=== PATIENT | male | born 1965 | race Caucasian/White ===

== ENCOUNTER 2020-02-24 16:41 | Inpatient (IN) | payer BC ==
[~2020-02-24] VITALS: Ht 189.2 cm; Wt 140.9 kg
--- NOTE | 2020-02-24 17:35 | NUR ---
THIS IS A 54 YO M BIB EMS FROM [facility] W/ C/O N/V AND RT SIDED ABD PAIN. EMS REPORTS PRESENCE OF GALSTONES. EMS REPORTS PT RECEIVED 4MG ZOFRAN AND 2L NS LEAD JAVASCRIPT DEVELOPER. PT REPORTS NAUSEA STARTED FRIDAY. PT HAS BEEN SELF ISOLATING AT HOME, HAS C/O SUBJECTIVE FEVERS AND NON PRODUCTIVE COUGH. WAS SWABBED FOR COVID AT [facility]. PT VSS, RESTING ON [facility] W/ CALL LIGHT IN REACH. AWAITING ED EVAL.
--- NOTE | 2020-02-24 17:59 | NUR ---
NO ORDERS FOR PT AT THIS TIME. PT DENIES EPISODE OF VOMITING SINCE ARRIVAL, VSS.
[2020-02-24] MEDS ORDERED: ONDANSETRON 2MG/ML, 2ML IVPush ONE (18:30)
[2020-02-24] MEDS ORDERED: MORPHINE SULFATE 4 MG/ML, 1ML IVPush PRN (18:30)
[2020-02-24] MEDS ORDERED: SODIUM CHLORIDE FLUSH 10ML SYR IVF ONE (18:30)
[2020-02-24] MEDS ORDERED: SODIUM CHLORIDE 0.9% 1,000ML IVBOLUS ONE (18:30)
[2020-02-24] MEDS ORDERED: ONDANSETRON 2MG/ML, 2ML ONE (18:31)
[2020-02-24] MEDS ORDERED: MORPHINE SULFATE 4 MG/ML, 1ML ONE (18:32)
--- NOTE | 2020-02-24 18:40 | NUR ---
PT MEDICATED PER EMAR. PLACED ON 2L O2 NC.
[2020-02-24 18:43] LABS: BASOPHILS # (AUTO) 0.02 x10^3/uL (0-0.1); BASOPHILS % (AUTO) 0 % (0-1); EOSINOPHILS # (AUTO) 0.01 x10^3/uL (0-0.4); EOSINOPHILS % (AUTO) 0 % (1-7); LYMPHOCYTES # (AUTO) 0.68 x10^3/uL (1-3.4); LYMPHOCYTES % (AUTO) 6 % (22-44); MD NO; MEAN CORPUSCULAR HEMOGLOBIN 28.7 pg (27.5-34.5); MEAN CORPUSCULAR HGB CONC 32.6 g/dL (33.2-36.2); MEAN PLATELET VOLUME 9.3 fL (7.4-10.4); MONOCYTES # (AUTO) 0.77 x10^3/uL (0.2-0.8); MONOCYTES % (AUTO) 6 % (2-9); NEUTROPHILS # (AUTO) 10.69 x10^3/uL (1.8-6.8); NEUTROPHILS % (AUTO) 88 % (42-75); PLATELET COUNT 172 x10^3/uL (130-400); RED BLOOD COUNT 6.05 x10^6/uL (4.38-5.82); RED CELL DISTRIBUTION WIDTH 14.1 % (9.4-14.8)
--- NOTE | 2020-02-24 18:45 | NUR ---
PT REPORTS NO HOME MEDS. IN ROOM TO UPDATE PT ON POC FOR ADMIT.
[2020-02-24 18:49] LABS: ALBUMIN 3.2 g/dL (3.4-5.0); ANION GAP 10 mmol/L (5-15); CALCIUM 8.5 mg/dL (8.5-10.1); CHLORIDE 107 mmol/L (98-107); CREATININE 1.62 mg/dL (0.7-1.3)
[2020-02-24 18:51] LABS: ALKALINE PHOSPHATASE 101 U/L (45-117); BILIRUBIN,TOTAL 5.1 mg/dL (0.2-1.0); TOTAL PROTEIN 6.5 g/dL (6.4-8.2)
--- NOTE | 2020-02-24 18:57 | NUR ---
pt to mri.
[2020-02-24 19:30] LABS: ALANINE AMINOTRANSFERASE 1347 U/L (12-78)
[2020-02-24] MEDS ORDERED: SODIUM CHLORIDE 0.9% 1,000 ML IV ONE ×2 (20:35→20:38)
[2020-02-24] MEDS ORDERED: CEFOTETAN PMX 1GM/50ML 50 ML ONE (20:52)
[2020-02-24] MEDS ORDERED: SODIUM CHLORIDE FLUSH 10ML SYR IVF PRN (21:00)
[2020-02-24] MEDS ORDERED: CEFOTETAN PMX 1GM/50ML 50 ML IV ONE (21:00)
--- NOTE | 2020-02-24 22:00 | NUR ---
REPORT CALLED TO SPEEDY MARINA ON MED/SURG. PT AGREEABLE TO PLAN OF CARE. DENIES CURRENT NEEDS. A&O X 4
[2020-02-24] MEDS ORDERED: ONDANSETRON 2MG/ML, 2ML IVPush PRN (22:30)
[2020-02-24] MEDS ORDERED: hydrALAzine 20 MG/ML, 1ML IVPush PRN (22:30)
[2020-02-24] MEDS ORDERED: morphine SULFATE 10 MG/ML, 1ML IVPush PRN (22:30)
[2020-02-24] MEDS: LACTATED RINGERS 1,000 ML IV SCH (22:54)
[2020-02-24 22:57] VITALS: BP 118/86
[2020-02-24] MEDS: HEPARIN 5,000 UNITS/ML, 1ML SQ SCH (23:23)
[2020-02-25 00:57] VITALS: BP 111/67
[2020-02-25 04:22] VITALS: BP 117/87
[2020-02-25] MEDS: LACTATED RINGERS 1,000 ML IV SCH (06:30)
[2020-02-25] MEDS: PIPERACILLIN/TAZO/PMX 3.375GM 50 ML IV SCH ×4 (06:36→23:48)
[2020-02-25] MEDS: HEPARIN 5,000 UNITS/ML, 1ML SQ SCH ×3 (06:37→23:48)
[2020-02-25 07:13] LABS: BASOPHILS # (AUTO) 0.05 x10^3/uL (0-0.1); BASOPHILS % (AUTO) 1 % (0-1); EOSINOPHILS # (AUTO) 0.04 x10^3/uL (0-0.4); EOSINOPHILS % (AUTO) 0 % (1-7); LYMPHOCYTES # (AUTO) 0.67 x10^3/uL (1-3.4); LYMPHOCYTES % (AUTO) 6 % (22-44); MD NO; MEAN CORPUSCULAR HEMOGLOBIN 28.8 pg (27.5-34.5); MEAN CORPUSCULAR HGB CONC 32.8 g/dL (33.2-36.2); MEAN CORPUSCULAR VOLUME 87.8 fL (81-97); MEAN PLATELET VOLUME 8.6 fL (7.4-10.4); MONOCYTES # (AUTO) 0.96 x10^3/uL (0.2-0.8); MONOCYTES % (AUTO) 9 % (2-9); NEUTROPHILS # (AUTO) 8.82 x10^3/uL (1.8-6.8); NEUTROPHILS % (AUTO) 84 % (42-75); PLATELET COUNT 158 x10^3/uL (130-400); RED BLOOD COUNT 5.89 x10^6/uL (4.38-5.82)
[2020-02-25 07:25] LABS: ANION GAP 8 mmol/L (5-15); CHLORIDE 107 mmol/L (98-107)
[2020-02-25] MEDS ORDERED: PANTOPRAZOLE 40 MG IV IVPush SCH (07:30)
[2020-02-25 07:33] LABS: ALKALINE PHOSPHATASE 94 U/L (45-117); TOTAL PROTEIN 6.2 g/dL (6.4-8.2)
[2020-02-25 07:54] LABS: FREE T4 (FREE THYROXINE) 0.96 ng/dL (0.76-1.46)
[2020-02-25 07:55] LABS: ALANINE AMINOTRANSFERASE 1074 U/L (12-78)
[2020-02-25 09:09] VITALS: BP 115/80
[2020-02-25 12:39] LABS: CHLORIDE,URINE RANDOM 12 mmol/L; POTASSIUM,URINE RANDOM 24 mmol/L; SODIUM,URINE RANDOM 8 mmol/L
[2020-02-25] MEDS: D5%-0.45NACL+KCL 20MEQ 1,000 ML IV SCH (14:20)
[2020-02-25 14:21] VITALS: BP 124/88
[2020-02-25 19:47] VITALS: BP 114/77
[2020-02-26 03:08] VITALS: BP 114/78
[2020-02-26] MEDS: D5%-0.45NACL+KCL 20MEQ 1,000 ML IV SCH ×3 (03:21→23:22)
[2020-02-26 05:13] LABS: ALBUMIN 3.1 g/dL (3.4-5.0); ANION GAP 7 mmol/L (5-15); CALCIUM 8.1 mg/dL (8.5-10.1); CHLORIDE 104 mmol/L (98-107); CREATININE 1.61 mg/dL (0.7-1.3)
[2020-02-26 05:14] LABS: BASOPHILS # (AUTO) 0.01 x10^3/uL (0-0.1); BASOPHILS % (AUTO) 0 % (0-1); EOSINOPHILS # (AUTO) 0.08 x10^3/uL (0-0.4); EOSINOPHILS % (AUTO) 1 % (1-7); LYMPHOCYTES # (AUTO) 0.87 x10^3/uL (1-3.4); LYMPHOCYTES % (AUTO) 8 % (22-44); MD NO; MEAN CORPUSCULAR HEMOGLOBIN 28.6 pg (27.5-34.5); MEAN CORPUSCULAR VOLUME 89.6 fL (81-97); MEAN PLATELET VOLUME 8.6 fL (7.4-10.4); MONOCYTES # (AUTO) 1.09 x10^3/uL (0.2-0.8); MONOCYTES % (AUTO) 10 % (2-9); NEUTROPHILS # (AUTO) 8.72 x10^3/uL (1.8-6.8); NEUTROPHILS % (AUTO) 81 % (42-75); PLATELET COUNT 139 x10^3/uL (130-400); RED BLOOD COUNT 5.88 x10^6/uL (4.38-5.82); RED CELL DISTRIBUTION WIDTH 14.3 % (9.4-14.8)
[2020-02-26] MEDS: PIPERACILLIN/TAZO/PMX 3.375GM 50 ML IV SCH ×3 (06:53→21:10)
[2020-02-26] MEDS: HEPARIN 5,000 UNITS/ML, 1ML SQ SCH ×3 (06:53→16:12)
[2020-02-26 09:52] VITALS: BP 116/80
[2020-02-26 15:15] VITALS: BP 115/77
[2020-02-26 19:20] VITALS: BP 116/79
[2020-02-26] MEDS ORDERED: POTASSIUM PHOSPHATE 44 MEQ in SODIUM CHLORIDE 0.9% 500 ML IV ONE (20:00)
[2020-02-26] MEDS ORDERED: MAGNESIUM SULFATE PMX 2GM/50ML 50 ML IV ONE (20:30)
[2020-02-27 00:17] VITALS: BP 123/84
[2020-02-27] MEDS: PIPERACILLIN/TAZO/PMX 3.375GM 50 ML IV SCH ×4 (03:45→22:34)
[2020-02-27 05:10] LABS: BASOPHILS # (AUTO) 0.03 x10^3/uL (0-0.1); BASOPHILS % (AUTO) 0 % (0-1); EOSINOPHILS # (AUTO) 0.19 x10^3/uL (0-0.4); EOSINOPHILS % (AUTO) 2 % (1-7); LYMPHOCYTES # (AUTO) 0.96 x10^3/uL (1-3.4); LYMPHOCYTES % (AUTO) 9 % (22-44); MD NO; MEAN CORPUSCULAR HEMOGLOBIN 28.5 pg (27.5-34.5); MEAN CORPUSCULAR HGB CONC 32.4 g/dL (33.2-36.2); MEAN CORPUSCULAR VOLUME 87.9 fL (81-97); MEAN PLATELET VOLUME 8.4 fL (7.4-10.4); MONOCYTES # (AUTO) 0.87 x10^3/uL (0.2-0.8); MONOCYTES % (AUTO) 8 % (2-9); NEUTROPHILS % (AUTO) 81 % (42-75); PLATELET COUNT 156 x10^3/uL (130-400); RED BLOOD COUNT 5.83 x10^6/uL (4.38-5.82); RED CELL DISTRIBUTION WIDTH 14.2 % (9.4-14.8)
[2020-02-27 05:21] LABS: BILIRUBIN, DIRECT 2.3 mg/dL (0.1-0.2)
[2020-02-27 05:23] LABS: BILIRUBIN,INDIRECT 1.4 mg/dL (0.0-2.0); BILIRUBIN,TOTAL 3.7 mg/dL (0.2-1.0); TOTAL PROTEIN 6.5 g/dL (6.4-8.2)
[2020-02-27 07:22] VITALS: BP 119/87
[2020-02-27] MEDS: D5%-0.45NACL+KCL 20MEQ 1,000 ML IV SCH (10:14)
[2020-02-27] MEDS: SODIUM CHLORIDE 0.9% 1,000ML IVBOLUS ONE ×2 (10:30→10:37)
[2020-02-27 15:18] VITALS: BP 124/84
[2020-02-27] MEDS: HEPARIN 5,000 UNITS/ML, 1ML SQ SCH (15:21)
[2020-02-27] MEDS ORDERED: HEPARIN 5,000 UNITS/ML, 1ML IV ONE (18:00)
[2020-02-27 18:20] LABS: D-DIMER 11.41 ug/mlFEU (0.00-0.52)
[2020-02-27] MEDS: HEPARIN 25,000 UNITS/250ML PMX 250 ML IV PRN (20:54)
[2020-02-27] MEDS ORDERED: FUROSEMIDE 40 MG/4 ML IV ONE (22:00)
[2020-02-27] MEDS ORDERED: OMNIPAQUE 350 MG/ML, 100ML BOTTLE ONE (23:34)
[2020-02-28 04:00] VITALS: BP 126/77
[2020-02-28] MEDS: PIPERACILLIN/TAZO/PMX 3.375GM 50 ML IV SCH ×3 (04:43→18:03)
[2020-02-28 05:08] LABS: BASOPHILS # (AUTO) 0.03 x10^3/uL (0-0.1); BASOPHILS % (AUTO) 0 % (0-1); EOSINOPHILS # (AUTO) 0.06 x10^3/uL (0-0.4); EOSINOPHILS % (AUTO) 1 % (1-7); LYMPHOCYTES # (AUTO) 0.85 x10^3/uL (1-3.4); LYMPHOCYTES % (AUTO) 9 % (22-44); MD NO; MEAN CORPUSCULAR HEMOGLOBIN 28.4 pg (27.5-34.5); MEAN CORPUSCULAR HGB CONC 32.7 g/dL (33.2-36.2); MEAN CORPUSCULAR VOLUME 86.7 fL (81-97); MEAN PLATELET VOLUME 8.4 fL (7.4-10.4); MONOCYTES # (AUTO) 1.03 x10^3/uL (0.2-0.8); MONOCYTES % (AUTO) 11 % (2-9); NEUTROPHILS # (AUTO) 7.77 x10^3/uL (1.8-6.8); NEUTROPHILS % (AUTO) 80 % (42-75); PLATELET COUNT 133 x10^3/uL (130-400); RED BLOOD COUNT 5.59 x10^6/uL (4.38-5.82); RED CELL DISTRIBUTION WIDTH 14.6 % (9.4-14.8)
[2020-02-28 05:21] LABS: ALANINE AMINOTRANSFERASE 392 U/L (12-78); ALBUMIN 2.9 g/dL (3.4-5.0); ANION GAP 7 mmol/L (5-15); CALCIUM 8.5 mg/dL (8.5-10.1); CHLORIDE 108 mmol/L (98-107); CREATININE 1.95 mg/dL (0.7-1.3)
[2020-02-28 05:25] LABS: ALKALINE PHOSPHATASE 69 U/L (45-117); TOTAL PROTEIN 6.3 g/dL (6.4-8.2)
[2020-02-28] MEDS: HEPARIN 5,000 UNITS/ML, 1ML IV PRN ×2 (05:49→20:24)
[2020-02-28] MEDS: INSULIN LISPRO 100 UNITS/ML, PEN SQ-INSULIN SCH ×4 (10:52→22:19)
[2020-02-28] MEDS: INSULIN GLARGINE 100 UNITS/ML, PEN SQ-INSULIN SCH ×2 (10:53→22:19)
[2020-02-28] MEDS: LEVOTHYROXINE 50 MCG TABLET PO SCH (10:57)
[2020-02-28] MEDS ORDERED: DIGOXIN 0.25 MG/ML, 2ML ONE (15:26)
[2020-02-28] MEDS ORDERED: DIGOXIN 0.25 MG/ML, 2ML IVPush ONE (15:30)
[2020-02-28 15:37] VITALS: BP 122/89
[2020-02-28] MEDS ORDERED: ADENOSINE 6 MG/2 ML IVPush ONE ×3 (16:00→16:30)
[2020-02-28] MEDS ORDERED: ISOSORBIDE DINITRATE 10 MG TABLET PO SCH (16:30)
[2020-02-28] MEDS ORDERED: FUROSEMIDE 100 MG in SODIUM CHLORIDE 0.9% 90 ML IV SCH (17:00)
[2020-02-28] MEDS: CARVEDILOL 3.125 MG TABLET PO SCH (18:03)
[2020-02-28] MEDS: HEPARIN 25,000 UNITS/250ML PMX 250 ML IV PRN (18:08)
[2020-02-28] MEDS: FUROSEMIDE 40 MG/4 ML IV SCH (21:45)
[2020-02-28 23:32] LABS: OCCULT BLOOD POSITIVE (NEGATIVE)
[2020-02-28 23:38] LABS: BASOPHILS # (AUTO) 0.03 x10^3/uL (0-0.1); BASOPHILS % (AUTO) 0 % (0-1); EOSINOPHILS % (AUTO) 2 % (1-7); LYMPHOCYTES # (AUTO) 1.17 x10^3/uL (1-3.4); LYMPHOCYTES % (AUTO) 13 % (22-44); MD NO; MEAN CORPUSCULAR HEMOGLOBIN 28.6 pg (27.5-34.5); MEAN CORPUSCULAR HGB CONC 32.4 g/dL (33.2-36.2); MEAN CORPUSCULAR VOLUME 88.3 fL (81-97); MEAN PLATELET VOLUME 8.8 fL (7.4-10.4); MONOCYTES # (AUTO) 0.76 x10^3/uL (0.2-0.8); MONOCYTES % (AUTO) 8 % (2-9); NEUTROPHILS # (AUTO) 6.88 x10^3/uL (1.8-6.8); NEUTROPHILS % (AUTO) 76 % (42-75); PLATELET COUNT 135 x10^3/uL (130-400); RED BLOOD COUNT 4.75 x10^6/uL (4.38-5.82); RED CELL DISTRIBUTION WIDTH 14.8 % (9.4-14.8)
[2020-02-28 23:57] LABS: CLOSTRIDIUM DIFFICILE ANTIGEN POSITIVE; CLOSTRIDIUM DIFFICILE TOXIN POSITIVE (Negative)
[2020-02-29] MEDS ORDERED: METRONIDAZOLE PMX 500MG/100ML 100 ML IV SCH
[2020-02-29] MEDS ORDERED: PANTOPRAZOLE 40 MG IV IVPush SCH
[2020-02-29] MEDS: ISOSORBIDE DINITRATE 10 MG TABLET PO SCH ×4 (01:02→20:56)
[2020-02-29] MEDS: PIPERACILLIN/TAZO/PMX 3.375GM 50 ML IV SCH ×4 (01:13→17:46)
[2020-02-29] MEDS ORDERED: FILTER 0.22 MICRON IV ONE (01:30)
[2020-02-29] MEDS ORDERED: AMIODARONE 150 MG in DEXTROSE 5% 100 ML IV ONE (01:30)
[2020-02-29] MEDS: FILTER 0.22 MICRON IV PRN (02:19)
[2020-02-29] MEDS: AMIODARONE 450 MG in DEXTROSE 5% 241 ML IV PRN (02:19)
[2020-02-29 02:55] LABS: MEAN CORPUSCULAR HEMOGLOBIN 28.4 pg (27.5-34.5); MEAN CORPUSCULAR HGB CONC 32.1 g/dL (33.2-36.2); MEAN CORPUSCULAR VOLUME 88.4 fL (81-97); MEAN PLATELET VOLUME 9.1 fL (7.4-10.4); PLATELET COUNT 183 x10^3/uL (130-400); RED BLOOD COUNT 4.85 x10^6/uL (4.38-5.82); RED CELL DISTRIBUTION WIDTH 14.4 % (9.4-14.8)
[2020-02-29 03:27] LABS: MD YES
[2020-02-29 03:29] LABS: <PLATELET ESTIMATE> ADEQUATE; <RBC MORPHOLOGY> NORMAL; BANDS%(MANUAL) 2 % (0-7); EOS% (MANUAL) 2 % (1-7); LYMPH#(MANUAL) 1.63 x10^3/uL (1-3.4); LYMPHS% (MANUAL) 11 % (22-44); MONOS#(MANUAL) 1.18 x10^3/uL (0.3-2.7); MONOS% (MANUAL) 8 % (2-9); SEGS% (MANUAL) 77 % (42-75)
[2020-02-29 03:30] LABS: <PLT MORPHOLOGY> NORMAL PLT MORPH
[2020-02-29] MEDS: HEPARIN 5,000 UNITS/ML, 1ML IV PRN (03:53)
[2020-02-29] MEDS: LEVOTHYROXINE 50 MCG TABLET PO SCH (06:35)
[2020-02-29 07:45] LABS: ALANINE AMINOTRANSFERASE 224 U/L (12-78); ALBUMIN 2.3 g/dL (3.4-5.0); CALCIUM 8.1 mg/dL (8.5-10.1); CHOLESTEROL, TOTAL 103 mg/dL (140-239); CREATININE 1.61 mg/dL (0.7-1.3)
[2020-02-29 07:52] LABS: CHLORIDE 112 mmol/L (98-107); MEAN CORPUSCULAR HEMOGLOBIN 28.2 pg (27.5-34.5); MEAN CORPUSCULAR HGB CONC 31.8 g/dL (33.2-36.2); MEAN CORPUSCULAR VOLUME 88.8 fL (81-97); MEAN PLATELET VOLUME 8.4 fL (7.4-10.4); PLATELET COUNT 153 x10^3/uL (130-400); RED BLOOD COUNT 4.58 x10^6/uL (4.38-5.82); RED CELL DISTRIBUTION WIDTH 14.5 % (9.4-14.8)
[2020-02-29 07:53] LABS: ALKALINE PHOSPHATASE 51 U/L (45-117); ANION GAP 7 mmol/L (5-15); CHOL/HDL RATIO 5.4; HDL CHOL % 18 % (26-37); HDL CHOLESTEROL (DIRECT) 19 mg/dL (40-60); LDL CHOLESTEROL,CALCULATED 66 mg/dL (54-169); LDL/HDL RATIO 3.5 (0.5-3.0); TOTAL PROTEIN 5.3 g/dL (6.4-8.2); TRIGLYCERIDES 88 mg/dL (50-200); VLDL CHOLESTEROL 18 mg/dL (0-25)
[2020-02-29] MEDS ORDERED: PROPOFOL 10 MG/ML, 100ML IV ONE (08:00)
[2020-02-29] MEDS ORDERED: ETOMIDATE 20 MG/10 ML ONE (08:00)
[2020-02-29] MEDS ORDERED: SUCCINYLCHOLINE 20 MG/ML, 10ML ONE (08:00)
[2020-02-29] MEDS ORDERED: PROPOFOL 10 MG/ML, 20ML ONE (08:00)
[2020-02-29 08:09] LABS: BASOPHILS # (AUTO) 0.04 x10^3/uL (0-0.1); BASOPHILS % (AUTO) 0 % (0-1); EOSINOPHILS # (AUTO) 0.23 x10^3/uL (0-0.4); EOSINOPHILS % (AUTO) 2 % (1-7); LYMPHOCYTES # (AUTO) 1.31 x10^3/uL (1-3.4); LYMPHOCYTES % (AUTO) 12 % (22-44); MD SCAN; MONOCYTES # (AUTO) 0.83 x10^3/uL (0.2-0.8); MONOCYTES % (AUTO) 8 % (2-9); NEUTROPHILS # (AUTO) 8.74 x10^3/uL (1.8-6.8); NEUTROPHILS % (AUTO) 78 % (42-75)
[2020-02-29] MEDS: CARVEDILOL 3.125 MG TABLET PO SCH ×2 (10:15→17:43)
[2020-02-29] MEDS: HEPARIN 25,000 UNITS/250ML PMX 250 ML IV PRN (11:17)
[2020-02-29] MEDS: FUROSEMIDE 40 MG/4 ML IV SCH ×3 (11:17→20:57)
[2020-02-29] MEDS: INSULIN LISPRO 100 UNITS/ML, PEN SQ-INSULIN SCH ×4 (11:18→21:00)
[2020-02-29] MEDS: INSULIN GLARGINE 100 UNITS/ML, PEN SQ-INSULIN SCH ×2 (11:19→21:01)
[2020-02-29] MEDS: VANCOMYCIN 50 MG/ML ORAL SUSP PO SCH ×3 (13:00→19:28)
[2020-02-29] MEDS: PANTOPRAZOLE 40MG TABLET PO SCH (17:10)
[2020-03-01] MEDS: VANCOMYCIN 50 MG/ML ORAL SUSP PO SCH ×4 (00:21→19:50)
[2020-03-01] MEDS: PIPERACILLIN/TAZO/PMX 3.375GM 50 ML IV SCH ×4 (00:21→20:30)
[2020-03-01] MEDS: HEPARIN 25,000 UNITS/250ML PMX 250 ML IV PRN ×2 (00:47→16:16)
[2020-03-01] MEDS: FILTER 0.22 MICRON IV PRN (00:54)
[2020-03-01] MEDS: AMIODARONE 450 MG in DEXTROSE 5% 241 ML IV PRN (00:54)
[2020-03-01] MEDS: LEVOTHYROXINE 50 MCG TABLET PO SCH (05:59)
[2020-03-01] MEDS: FUROSEMIDE 40 MG/4 ML IV SCH ×2 (05:59→16:16)
[2020-03-01] MEDS: PANTOPRAZOLE 40MG TABLET PO SCH ×2 (05:59→16:16)
[2020-03-01] MEDS: CARVEDILOL 3.125 MG TABLET PO SCH ×3 (06:00→22:00)
[2020-03-01 06:35] LABS: MEAN CORPUSCULAR HEMOGLOBIN 28.3 pg (27.5-34.5); MEAN CORPUSCULAR HGB CONC 32.4 g/dL (33.2-36.2); MEAN CORPUSCULAR VOLUME 87.3 fL (81-97); MEAN PLATELET VOLUME 8.6 fL (7.4-10.4); PLATELET COUNT 165 x10^3/uL (130-400); RED BLOOD COUNT 3.53 x10^6/uL (4.38-5.82); RED CELL DISTRIBUTION WIDTH 14.1 % (9.4-14.8)
[2020-03-01 06:43] LABS: ANION GAP 9 mmol/L (5-15); CALCIUM 7.8 mg/dL (8.5-10.1); CHLORIDE 103 mmol/L (98-107); CREATININE 1.46 mg/dL (0.7-1.3)
[2020-03-01 06:51] LABS: BASOPHILS # (AUTO) 0.05 x10^3/uL (0-0.1); BASOPHILS % (AUTO) 0 % (0-1); EOSINOPHILS # (AUTO) 0.46 x10^3/uL (0-0.4); EOSINOPHILS % (AUTO) 3 % (1-7); LYMPHOCYTES # (AUTO) 2.53 x10^3/uL (1-3.4); LYMPHOCYTES % (AUTO) 19 % (22-44); MD SCAN; MONOCYTES # (AUTO) 0.79 x10^3/uL (0.2-0.8); MONOCYTES % (AUTO) 6 % (2-9); NEUTROPHILS # (AUTO) 9.83 x10^3/uL (1.8-6.8); NEUTROPHILS % (AUTO) 72 % (42-75)
[2020-03-01] MEDS: INSULIN LISPRO 100 UNITS/ML, PEN SQ-INSULIN SCH ×4 (08:05→20:31)
[2020-03-01] MEDS: INSULIN GLARGINE 100 UNITS/ML, PEN SQ-INSULIN SCH ×2 (08:05→12:20)
[2020-03-01] MEDS: ISOSORBIDE DINITRATE 10 MG TABLET PO SCH (08:06)
[2020-03-01] MEDS ORDERED: AMIODARONE 200 MG TABLET PO SCH ×2 (09:00→21:00)
[2020-03-01] MEDS ORDERED: SPIRONOLACTONE 25 MG TABLET PO SCH (09:00)
[2020-03-01 09:20] LABS: % IRON SATURATION 19 % (20-55); IRON LEVEL 39 mcg/dL (65-175); TOTAL IRON BINDING CAPACITY 205 mcg/dL (250-450)
[2020-03-01] MEDS ORDERED: CARVEDILOL 3.125 MG TABLET PO SCH ×2 (14:00)
[2020-03-01 15:34] VITALS: BP 98/61
[2020-03-01] MEDS ORDERED: ISOSORBIDE DINITRATE 10 MG TABLET PO SCH ×2 (16:00→19:00)
[2020-03-01 16:20] VITALS: BP 108/55
[2020-03-01] MEDS ORDERED: EPINEPHRINE SYRINGE 0.1 MG/ML, 10ML ONE (18:13)
[2020-03-01 19:46] VITALS: BP 99/49
[2020-03-01 22:06] VITALS: BP 83/49
[2020-03-01 23:39] VITALS: BP 83/43
[2020-03-02] MEDS: FUROSEMIDE 40 MG/4 ML IV SCH
[2020-03-02 00:39] VITALS: BP 81/42
[2020-03-02] MEDS: PIPERACILLIN/TAZO/PMX 3.375GM 50 ML IV SCH (01:13)
[2020-03-02] MEDS: VANCOMYCIN 50 MG/ML ORAL SUSP PO SCH (01:13)
[2020-03-02 03:27] VITALS: BP 85/46
[2020-03-02] MEDS: HEPARIN 25,000 UNITS/250ML PMX 250 ML IV PRN (04:20)
[2020-03-02 04:30] VITALS: BP 81/34
[2020-03-02] MEDS ORDERED: SODIUM CHLORIDE 0.9%, 500ML IVBOLUS ONE (05:00)
[2020-03-02] MEDS ORDERED: ATROPINE SYRINGE 0.1 MG/ML, 10ML ONE (05:22)
[2020-03-02] MEDS ORDERED: CODE BLUE RESPONSE XX ONE (05:22)
[2020-03-02] MEDS ORDERED: EPINEPHRINE SYRINGE 0.1 MG/ML, 10ML ONE (05:22)
[2020-03-02] MEDS ORDERED: SODIUM BICARB 8.4%, 50ML SYRINGE ONE (05:22)
[2020-03-02] MEDS ORDERED: SPIRONOLACTONE 25 MG TABLET PO SCH (09:00)
== END 2020-03-02 04:47 | disposition expired | DRG 444 ==
LOC: ED 18:16 → EDIP 20:38 → 4NE 22:08 → 4NW 02-25 04:00 → ICU 02-27 18:20 → 5SO 02-28 14:55 → ICU 02-28 16:48 → 5SO 03-01 14:38
PROVIDERS: ADMIT Surgery; ATTEND Internal Medicine
PROC: 5A12012 Performance of Cardiac Output, Single, Manual (ICD-10-PCS; principal; 2020-02-24)
PROC: 5A2204Z Restoration of Cardiac Rhythm, Single (ICD-10-PCS; 2020-02-24)
DX: K80.00 Calculus of gallbladder with acute cholecystitis without obstruction (principal); K85.10 Biliary acute pancreatitis without necrosis or infection; I21.4 Non-ST elevation (NSTEMI) myocardial infarction; N17.0 Acute kidney failure with tubular necrosis; I50.23 Acute on chronic systolic (congestive) heart failure; I26.99 Other pulmonary embolism without acute cor pulmonale; J96.00 Acute respiratory failure, unspecified whether with hypoxia or hypercapnia; A04.72 Enterocolitis due to Clostridium difficile, not specified as recurrent; B19.9 Unspecified viral hepatitis without hepatic coma; I42.0 Dilated cardiomyopathy; R74.0 Nonspecific elevation of levels of transaminase and lactic acid dehydrogenase [LDH]; E66.9 Obesity, unspecified; D64.9 Anemia, unspecified; I44.7 Left bundle-branch block, unspecified; E86.0 Dehydration; R73.9 Hyperglycemia, unspecified; E03.9 Hypothyroidism, unspecified; I07.1 Rheumatic tricuspid insufficiency; Z11.59 Encounter for screening for other viral diseases; Z68.39 Body mass index [BMI] 39.0-39.9, adult; Z79.01 Long term (current) use of anticoagulants; Z80.1 Family history of malignant neoplasm of trachea, bronchus and lung; Z83.3 Family history of diabetes mellitus; Z87.891 Personal history of nicotine dependence
CPT/HCPCS: 36415; 36600; 74018; 96374; 96375; 99285; J3370; 71045; 71275; 74181; 80048; 80053; 80061; 80069; 80074; 80076; 80307; 82272; 82436; 82570; 82803; 82962; 83036; 83540; 83550; 83690; 83735; 83880; 84100; 84133; 84300; 84439; 84443; 84481; 84484; 85025; 85379; 85520; 87081; 87324; 92950; 93005; 93308; 93321; 93325; G0378; J0153; J0461; J1644; J1940; J2405; J2543; J2704; J7060; Q9967; C9113; J0282; J0330; J1160; J1815; J2270; J3480; J3490; J7030; J7040; J7120; U0001-CS